=== PATIENT | male | born 1980 | race African-American/Black ===

== ENCOUNTER 2017-03-20 18:14 | Emergency (ER) | payer BC, SELFPAY ==
[2017-03-20] MEDS ORDERED: Metoclopramide HCl 10 MG/2 ML VIAL ONE (19:10)
[2017-03-20] MEDS ORDERED: diphenhydrAMINE 50 MG/ML VIAL ONE (19:10)
[2017-03-20] MEDS ORDERED: Ketorolac Tromethamine 30 MG/ML VIAL ONE (20:50)
--- NOTE | 2017-03-20 21:05 | CT ---
CT HEAD NONCONTRAST 03/20/17 HISTORY: Headache. COMPARISON: 07/24/16. FINDINGS: There is no evidence of acute intracranial hemorrhage or infarct. The ventricles appear normal in siz e, shape and position. There is no mass effect or shift of midline structures. The visualized paranas al sinuses remain well aerated. IMPRESSION: No acute intracranial abnormalities are demonstrated on noncontrast CT head. POS: H
== END 2017-03-20 21:00 | disposition home or self-care (01) ==
LOC: SCSER 18:14
DX: R51 Headache (principal); F17.210 Nicotine dependence, cigarettes, uncomplicated
CPT/HCPCS: 70450; 96365; 96366; 96375; J1200; J1885; J2765

== ENCOUNTER 2018-09-14 23:59 | Emergency (ER) | payer SELFPAY ==
[2018-09-15] MEDS ORDERED: Metoclopramide HCl 10 MG/2 ML VIAL ONE (00:12)
[2018-09-15] MEDS ORDERED: diphenhydrAMINE 50 MG/ML VIAL ONE (00:12)
== END 2018-09-15 01:15 | disposition home or self-care (01) ==
LOC: ERS 23:59
DX: R51 Headache (principal); F17.210 Nicotine dependence, cigarettes, uncomplicated; I10 Essential (primary) hypertension; Z79.899 Other long term (current) drug therapy
CPT/HCPCS: 96361; 96374; 96375; J1200; J2765

== ENCOUNTER 2019-01-05 03:28 | Emergency (ER) | payer SELFPAY ==
[2019-01-05] MEDS ORDERED: diphenhydrAMINE 50 MG/ML VIAL ONE (03:57)
[2019-01-05] MEDS ORDERED: Acetaminophen 500 MG TAB ONE (03:57)
[2019-01-05] MEDS ORDERED: Metoclopramide HCl 10 MG/2 ML VIAL ONE (03:57)
--- NOTE | 2019-01-05 07:49 | CT ---
PRELIMINARY REPORT/[facility]/EMERGENCY AFTER HOURS PROCEDURE EXAM: CT Head Without Contrast EXAM DATE/TIME: 01/05/2019 4:16 AM CLINICAL HISTORY: 38 years old, male; Pain; Headache; Patient HX: 38 y/o m presents to ED C/O HTN of 192/104, as measur ed at home late last night. PT describes drinking at large sweet tea last night, following which he b odalys experiencing a GRIFFITHS at 1900 TECHNIQUE: Imaging protocol: Computed tomography of the head without contrast. COMPARISON: No relevant prior studies available. FINDINGS: Brain: No hemorrhage. Unremarkable white matter. No mass effect. Ventricles: No ventriculomegaly. Bones/joints: No acute fracture. Sinuses: Visualized sinuses are unremarkable. No fluid levels. Mastoid air cells: Visualized mastoid air cells are well aerated. Soft tissues: Unremarkable. IMPRESSION: No acute intracranial abnormality. Thank you for allowing us to participate in the care of your patient. Dictated and Authenticated by: Paulette Trevino MD 01/05/2019 4:39 AM Central Time ([place] & [place]) FINAL REPORT EMERGENT AFTER HOURS CT OF BRAIN PERFORMED WITHUOT CONTRAST ENHANCEMENT: HISTORY: Headache. COMPARISON: 03/20/2017 study. FINDINGS: The ventricular and cisternal system is within normal limits. There are no signs of intracerebral he morrhage or extraaxial fluid collections. Mastoid air cells and visualized sinuses are clear. IMPRESSION: 1. No acute intracranial abnormalities. 2. This report is in agreement with the temporary report issued by [facility]. CODE QA POS: [facility]
== END 2019-01-05 05:09 | disposition home or self-care (01) ==
LOC: ERS 03:28
DX: I10 Essential (primary) hypertension (principal); F17.210 Nicotine dependence, cigarettes, uncomplicated; Z79.899 Other long term (current) drug therapy
CPT/HCPCS: 70450; 96365; 96375; J1200; J2765

== ENCOUNTER 2019-02-09 17:41 | Emergency (ER) | payer SELFPAY ==
[2019-02-09] MEDS ORDERED: HYDROcodone/Acetaminophen 10/325 mg Tablet ONE (18:04)
== END 2019-02-09 18:10 | disposition home or self-care (01) ==
LOC: ERS 17:41
DX: K02.9 Dental caries, unspecified (principal); I10 Essential (primary) hypertension; F17.210 Nicotine dependence, cigarettes, uncomplicated; Z79.899 Other long term (current) drug therapy
CPT/HCPCS: 99282

== ENCOUNTER 2019-03-25 22:36 | Emergency (ER) | payer SELFPAY ==
[2019-03-26] MEDS ORDERED: Acetaminophen 500 MG TAB ONE (00:44)
[2019-03-26 00:49] LABS: Bacteria/HPF None Seen HPF (None Seen); Bilirubin Negative (Negative); Blood, Urine Trace (Negative); Clarity Clear (Clear); Glucose, Urine (Dipstick) Normal (Negative); Leukocyte Negative Leu/uL (Negative); Mucous/LPF 2+ LPF (<2+); Nitrite Negative (Negative); Protein, Urine (Dipstick) 20 mg/dL (Neg-Trace); RBC/HPF 0-3 HPF (0-3); Squamous Epithelial None Seen HPF (0-3); Urobilinogen Normal mg/dL (Less than 2); WBC/HPF 0-3 HPF (0-3)
== END 2019-03-26 01:28 | disposition home or self-care (01) ==
LOC: ERS 22:36
DX: I10 Essential (primary) hypertension (principal); F17.210 Nicotine dependence, cigarettes, uncomplicated; Z79.899 Other long term (current) drug therapy
CPT/HCPCS: 36416; 81003; 81015; 99283

== ENCOUNTER 2021-02-20 22:08 | Emergency (ER) | payer SELFPAY ==
[2021-02-20] MEDS ORDERED: Morphine 4 MG/ML VIAL ONE (22:22)
[2021-02-20] MEDS ORDERED: hydrALAZINE 20 MG/ML VIAL ONE (22:23)
[2021-02-20 22:48] LABS: #Lymphocytes 1.5 thou/uL (1.20-3.40); #Monocytes 0.1 thou/uL (0.11-0.59); #Neutrophils 4.9 thou/uL (1.40-6.50); %Basophils 0.6 % (0.0-1.0); %Eosinophils 0.3 % (0.0-10.0); %Lymphocytes 23.1 % (21.0-51.0); Hemoglobin 13.5 g/dL (14.0-18.0); Mean Corpuscular HGB CONC 31.8 g/dL (32.0-36.0); Mean Corpuscular Hemoglobin 28.6 pg (27.0-31.0); Mean Corpuscular Volume 90.1 fL (78.0-98.0); Mean Platelet Volume 7.3 fL (7.4-10.4); Platelet Count 205 thou/uL (130-400); RBC Distribution Width 12.8 % (11.5-14.5); White Blood Cell (WBC) Count 6.6 thou/uL (4.8-10.8)
[2021-02-20 23:14] LABS: ALT (SGPT) 9 U/L (8-55); AST (SGOT) 18 U/L (5-34); Alkaline Phosphatase 63 U/L (40-110); Anion Gap 16 mmol/L (10-20); BUN (Urea Nitrogen) 13 mg/dL (8.9-20.6); Bilirubin, Total 0.5 mg/dL (0.2-1.2); Calc. Creatinine Clearance 0 mL/min (70-130); Calcium 9.4 mg/dL (7.8-10.44); Carbon Dioxide 25 mmol/L (22-29); Chloride 103 mmol/L (98-107); Globulin 2.8 g/dL (2.4-3.5); Glucose 124 mg/dL (70-105); Potassium 3.8 mmol/L (3.5-5.1); Protein, Total 6.8 g/dL (6.0-8.3); Sodium 140 mmol/L (136-145)
[2021-02-21] MEDS ORDERED: diphenhydrAMINE 50 MG/ML VIAL ONE (00:04)
[2021-02-21] MEDS ORDERED: Metoclopramide HCl 10 MG/2 ML VIAL ONE (00:04)
== END 2021-02-21 01:00 | disposition home or self-care (01) ==
LOC: ERS 22:08
DX: I10 Essential (primary) hypertension (principal); R51.9 Headache, unspecified; F17.210 Nicotine dependence, cigarettes, uncomplicated; Z79.899 Other long term (current) drug therapy
CPT/HCPCS: 36415; 80053; 84484; 85025; 93005; 96374; 96375; J0360; J1200; J2270; J2765